=== PATIENT | male | born 1955 | race Caucasian/White ===

== ENCOUNTER 2020-10-20 17:10 | Emergency (ER) | payer OTHER ==
--- NOTE | 2020-10-20 18:13 | RAD REPORT ---
EXAM DESCRIPTION: CT - CTHCSPWOC - 10/20/2020 5:55 pm CLINICAL HISTORY: Trauma, head and neck injury. SMASH INJURY COMPARISON: No comparisons TECHNIQUE: Axial 5 mm thick images of the head were obtained. Axial 2 mm thick images of the cervical spine were obtained with sagittal and coronal reconstruction images generated and reviewed. All CT scans are performed using dose optimization technique as appropriate and may include automated exposure control or mA/KV adjustment according to patient size. FINDINGS: CT HEAD WITHOUT CONTRAST: A small acute subdural hematoma suspected along the left posterior falx measuring maximally 5-6 mm in thickness.No midline shift or hydrocephalus.Moderate-sized left posterior scalp hematoma noted. The paranasal sinuses and mastoids are clear.The calvarium is intact. CT CERVICAL SPINE WITHOUT CONTRAST: No fracture or subluxation.Moderate midcervical spondylosis is present.No prevertebral soft tissues s welling is identified. IMPRESSION: Small acute subdural hematoma suspected along the left posterior falx.No midline shift i s evident. No acute cervical spine abnormality detected.
[2020-10-20 19:31] LABS: Absolute Lymphocytes (CBC) 1.1 K/uL (0.7-4.9); Basophils % 2.3 % (0-1.3); Hematocrit 42.7 % (39.6-49.0); Lymphocytes % 10.5 % (15.3-44.8); MPV 8.6 fL (7.6-11.3); RBC Red Blood Cell Count 5.19 M/uL (4.33-5.43)
[2020-10-20 19:34] LABS: Protime INR 0.97
--- NOTE | 2020-10-20 19:35 | ER ---
Nurse's Notes [facility] Name: Daniel Al Age: 65 yrs Sex: Male : 1955 Arrival Date: 10/20/2020 Time: 17:47 Bed 17 Private MD: Diagnosis: Superficial injury of head;Posterior Scalp Laceration;Acute Left Posterior subdrual hematoma without midline shift;Altered mental status, unspecified Presentation: 10/20 17:47 Chief complaint: EMS states: FALL AND STRUCK HEAD ON ICE, +LOC FOR 2 MINUTE, NOW AOx1, bp BASELINE AOx4. Care prior to arrival: Glucose check: 126. Mechanism of Injury: Fall from standing position. Trauma event details: Injury occurred in the [facility], Injury occurred: at home. Injury occurred: October 20, 2020 Injury occurred at: 17:15. 17:47 Acuity: BOB 2 bp 17:47 Method Of Arrival: EMS: [facility] bp 20:17 Coronavirus screen: Client denies travel out of the [place] in the last 14 days. At this sf time, the client does not indicate any symptoms associated with coronavirus-19. Ebola Screen: Patient negative for fever greater than or equal to 101.5 degrees Fahrenheit, and additional compatible Ebola Virus Disease symptoms Patient denies exposure to infectious person. Patient denies travel to an Ebola-affected area in the 21 days before illness onset. No symptoms or risks identified at this time. Initial Sepsis Screen: Does the patient meet any 2 criteria? No. Patient's initial sepsis screen is negative. Does the patient have a suspected source of infection? No. Patient's initial sepsis screen is negative. Risk Assessment: Do you want to hurt yourself or someone else? Patient reports no desire to harm self or others. Onset of symptoms was October 20, 2020. Trauma Activation: Alert Physician: ED Physician; Name: ; Notified At: ; Arrived At: Physician: General Surgeon; Name: ; Notified At: ; Arrived At: Physician: Radiology; Name: ; Notified At: ; Arrived At: Physician: Respiratory; Name: ; Notified At: ; Arrived At: Physician: Lab; Name: ; Notified At: ; Arrived At: Historical: - Allergies: 20:14 PENICILLINS; sf - Home Meds: 20:14 Synthroid 50 mcg Oral tab 1 tab once daily [Active]; simvastatin 20 mg Oral tab 1 tab sf once daily [Active]; hydrochlorothiazide 12.5 mg Oral tab 1 tab once daily [Active]; carvedilol 25 mg oral tab 1 tab 2 times per day [Active]; metformin 500 mg Oral tab 1 tab 2 times per day [Active]; - PMHx: 20:14 Diabetes - NIDDM; Hyperlipidemia; Hypertension; Hypothyroidism; sf - PSHx: 20:14 Unable to obtain; sf - Immunization history:: Adult Immunizations unknown. - Immunization history: Last tetanus immunization: unknown. - Social history:: Smoking status: unknown Patient/guardian denies using alcohol, street drugs, IV drugs. Screenin:40 Fall Risk None identified. Fall in past 12 months (25 points). Secondary diagnosis (15 sf points) impaired mobility, IV access (20 points). Ambulatory Aid- None/Bed Rest/Nurse Assist (0 pts). Gait- Impaired (20 pts.). Mental Status- Overestimates/Forgets Limitations (15 pts.). Total Bernal Fall Scale indicates High Risk Score (45 or more points). Fall prevention measures have been instituted. Side Rails Up X 2 Placed Close to Nursing Station Frequent Obs/Assessments Occuring. 20:10 Abuse screen: Denies threats or abuse. Denies injuries from another. Nutritional sf screening: No deficits noted. Tuberculosis screening: No symptoms or risk factors identified. Never had TB. Possible symptoms: None Risk factors: None. Primary Survey: 20:15 NO uncontrolled hemorrhage observed. Breathing/Chest: Respiratory pattern: regular, sf Respiratory effort: spontaneous, unlabored. Circulation: Pulses: palpable right radial artery and left radial artery. Skin color: pink, Skin temperature: warm, dry. Disability Alert. Exposure/Environment: There is no evidence of uncontrolled external bleeding. Obvious injury(ies) are noted at this time: Posterior scalp. 20:18 Reassessment Airway Airway Patent Breathing/Chest Respiratory pattern Regular sf Respiratory effort Spontaneous Unlabored Circulation Color [place] Temperature Warm Dry Disability Alert. Assessment: 17:47 General: Appears distressed, uncomfortable, Behavior is cooperative, anxious, CONFUSED. bp Pain: Complains of pain in back of head. Neuro: Level of Consciousness is awake, obeys commands, confused, Oriented to person, place. EENT: No deficits noted. Cardiovascular: No deficits noted. Respiratory: No deficits noted. GI: No signs and/or symptoms were reported involving the gastrointestinal system. : No signs and/or symptoms were reported regarding the genitourinary system. Derm: No deficits noted. Musculoskeletal: No deficits noted. 19:38 General: Appears in no apparent distress. comfortable, Behavior is calm, cooperative. sf Pain: Complains of pain in left parietal area Pain currently is 5 out of 10 on a pain scale. Neuro: Level of Consciousness is awake, obeys commands, confused, Oriented to person, place, Moves all extremities. Full function Gait is unsteady, Speech is normal, Pupils are PERRLA. Cardiovascular: No deficits noted. Cardiovascular: No deficits noted. Patient's skin is warm and dry. Respiratory: No deficits noted. Airway is patent Respiratory effort is even, unlabored, Respiratory pattern is regular, symmetrical. Derm: Wound noted left parietal area Wound is laceration/abrasion, javi x5 in place. 20:14 Reassessment: Patient appears in no apparent distress at this time. No changes from sf previously documented assessment. Patient and/or family updated on plan of care and expected duration. Pain level reassessed. Patient repeating questions that have already been answered; having short term memory loss. 21:21 Reassessment: Patient called out to use a urinal again, explained this is the 3rd time sf in an hour. Patient did not remember using the urinal in the past. 21:45 Reassessment: No changes from previously documented assessment. Patient and/or family sf updated on plan of care and expected duration. Pain level reassessed. Patient ambulatory to restroom. Asked if he has urine frequency normally, patient states "this is the first time I've gone since I've been here." Reoriented patient. 22:32 Reassessment: Patient and/or family updated on plan of care and expected duration. Pain sf level reassessed. Patient ambulatory to restroom with assistance. Told to stay in the bed. Patient requesting to call his so he can go home. Reoriented to plan of care. Redressed wound on posterior scalp because it was loose. 23:38 Reassessment: Patient appears in no apparent distress at this time. No changes from sf previously documented assessment. Patient and/or family updated on plan of care and expected duration. Pain level reassessed. 10/21 00:14 Reassessment: Patient appears in no apparent distress at this time. No changes from previously documented assessment. Patient and/or family updated on plan of care and expected duration. Pain level reassessed. Vital Signs: 10/20 19:30 BP 142 / 55; Pulse 88; Resp 16; Pulse Ox 98% ; sf 20:00 BP 137 / 74; Pulse 87; Resp 16; Pulse Ox 98% ; sf 21:00 BP 136 / 55; Pulse 105; Resp 18; Pulse Ox 94% ; sf 22:18 BP 141 / 76; Pulse 105; Resp 18; Pulse Ox 96% ; sf 10/21 00:11 BP 137 / 69; Pulse 90; Resp 16; Pulse Ox 94% ; sf 00:25 Pain 6/10; sf 01:36 BP 125 / 72; Pulse 90; Resp 16; Temp 99.2; Pulse Ox 98% ; sf [place] Coma Score: 10/20 20:00 Eye Response: spontaneous(4). Verbal Response: confused(4). Motor Response: obeys sf commands(6). Total: 14. Trauma Score (Adult): 20:00 Eye Response: spontaneous(1); Verbal Response: confused(1); Motor Response: obeys sf commands(2); Systolic BP: > 89 mm Hg(4); Respiratory Rate: 10 to 29 per min(4); Kelli Score: 14; Trauma Score: 12 NIH Stroke Scale Scores: 19:40 NIHSS Score: 2 sf ED Course: 17:47 Patient arrived in ED. bp 17:47 Chon Asher MD is Attending Physician. tw4 17:49 Triage completed. bp 17:55 CT Head C Spine In Process Unspecified. EDMS 18:18 Tanvir Oconnor, RN is Primary Nurse. bp 19:07 Attending Physician role handed off by Chon Asher MD kdr 19:07 Gopi Coronel MD is Attending Physician. kdr 19:20 Inserted saline lock: 22 gauge in right hand, using aseptic technique. Blood collected. sf 19:[address] [facility] with Jeanmarie Molina. Call was transferred to Dr. stephanie Coronel for consultation regarding the transfer request. 19:29 Jeanmarie Molina gave admin approval. The pt is going to [facility]. The tt3 accepting physician is Dr. Roland. Nurse to call report to . Facesheet and MOT faxed to per Jeanmarie's request. 19:30 Dressings: Kerlix X 1; left parietal area and right parietal area 4X4s X 4; left sf parietal area and right parietal area. 19:37 Patient has correct armband on for positive identification. Placed in gown. Bed in low sf position. Call light in reach. Side rails up X2. Pulse ox on. NIBP on. Door closed. Noise minimized. Verbal reassurance given. 20:07 Report given to Rukhsana Bolden RN. sf 20:10 No provider procedures requiring assistance completed. Patient transferred, IV remains sf in place. 20:18 Patient maintains SpO2 saturation greater than 95% on room air. sf 20:18 Arm band placed on right wrist. sf 20:19 Thermoregulation: warm blanket given to patient. sf Administered Medications: 20:30 Drug: Keppra 1000 mg Route: IV; Rate: calculated rate; Site: right hand; sf 21:00 Follow up: IV Status: Completed infusion; IV Intake: 100ml sf 21:30 Follow up: Response: No adverse reaction sf 10/21 00:25 Drug: Tylenol 650 mg Route: PO; sf 01:42 Follow up: Response: No adverse reaction; Pain is decreased sf Intake: 10/20 21:00 IV: 100ml; Total: 100ml. sf Output: 20:00 Urine: 350ml (Voided); Total: 350ml. sf Outcome: 19:34 ER care complete, transfer ordered by . kdr 20:07 Transferred by ground EMS to [facility], Transfer form completed. X-rays sent sf w/ patient. 20:07 Condition: stable 23:12 Patient's length of stay in the Emergency Department was greater than 2 hours. Weather sf related transportation issuesPatient's length of stay extended due to 10/21 01:43 Transferred [facility]. sf 02:02 Patient left the ED. sf NIH Stroke Scale - NIH Stroke Score Date: 10/20/2020 Time: 19:40 Total Score = 2 1a. Level of Consciousness (LOC) - 0(Alert) 1b. Level of Consciousness (LOC) (Year \\T\\ Age) - 2(Neither) 1c. LOC Commands (Open \\T\\ Closes Eyes/Food Vendor) - 0(Both) 2. Best Gaze (Lateral Gaze Paresis) - 0(Normal) 3. Visual Field Loss - 0(No visual loss) 4. Facial Palsy - 0(Normal) 5a. Left Arm: Motor (10-second hold) - 0(No drift) 5b. Right Arm: Motor (10-second hold) - 0(No drift) 6a. Left Leg: Motor (5-second hold - always test supine) - 0(No drift) 6b. Right Leg: Motor (5-second hold - always test supine) - 0(No drift) 7. Limb Ataxia (finger/nose \\T\\ heel/ruano - test with eyes open) - 0(Absent) 8. Sensory Loss (pinprick arms/legs/face) - 0(Normal) 9. Best Language: Aphasia (description/naming/reading) - 0(No aphasia) 10. Dysarthria (speech clarity - read or repeat words) - 0(Normal) 11. Extinction and Inattention (visual/tactile/auditory/spatial/personal) - 0(No abnormality) Initials: sf Signatures: Dispatcher [employer] EDMS Gopi Coronel MD MD kdr Tanvir Oconnor RN RN bp Chon Asher MD MD tw4 Jovany Payton tt3 Nabil Zuniga RN RN sf
--- NOTE | 2020-10-20 19:35 | EDPHYS ---
Physician Documentation [facility] Name: Daniel Al Age: 65 yrs Sex: Male : 1955 Arrival Date: 10/20/2020 Time: 17:47 Bed 17 Private MD: ED Physician Gopi Coronel HPI: 10/20 18:09 This 65 yrs old Male presents to ER via EMS with complaints of Fall Injury. tw4 18:09 Details of fall: The patient fell from a height, from an upright position, while tw4 standing, while walking. Details of fall: The patient fell from an upright position. Onset: The symptoms/episode began/occurred today. Associated injuries: The patient sustained neck injury, contusion. Severity of symptoms: At their worst the symptoms were moderate, in the emergency department the symptoms are unchanged. The patient has not experienced similar symptoms in the past. Historical: - Allergies: 20:14 PENICILLINS; sf - Home Meds: 20:14 Synthroid 50 mcg Oral tab 1 tab once daily [Active]; simvastatin 20 mg Oral tab 1 tab sf once daily [Active]; hydrochlorothiazide 12.5 mg Oral tab 1 tab once daily [Active]; carvedilol 25 mg oral tab 1 tab 2 times per day [Active]; metformin 500 mg Oral tab 1 tab 2 times per day [Active]; - PMHx: 20:14 Diabetes - NIDDM; Hyperlipidemia; Hypertension; Hypothyroidism; sf - PSHx: 20:14 Unable to obtain; sf - Immunization history:: Adult Immunizations unknown. - Immunization history: Last tetanus immunization: unknown. - Social history:: Smoking status: unknown Patient/guardian denies using alcohol, street drugs, IV drugs. ROS: 18:09 Constitutional: Negative for fever, chills, and weight loss, Eyes: Negative for injury, tw4 pain, redness, and discharge, Cardiovascular: Negative for chest pain, palpitations, and edema, Respiratory: Negative for shortness of breath, cough, wheezing, and pleuritic chest pain, Abdomen/GI: Negative for abdominal pain, nausea, vomiting, diarrhea, and constipation, MS/Extremity: Negative for injury and deformity, Skin: Negative for injury, rash, and discoloration. Exam: 18:09 Constitutional: This is a well developed, well nourished patient who is awake, alert, tw4 and in no acute distress. 18:09 ENT: Nares patent. No nasal discharge, no septal abnormalities noted. Tympanic membranes are normal and external auditory canals are clear. Oropharynx with no redness, swelling, or masses, exudates, or evidence of obstruction, uvula midline. Mucous membranes moist. Neck: Trachea midline, no thyromegaly or masses palpated, and no cervical lymphadenopathy. Supple, full range of motion without nuchal rigidity, or vertebral point tenderness. No Meningismus. Chest/axilla: Normal chest wall appearance and motion. Nontender with no deformity. No lesions are appreciated. Cardiovascular: Regular rate and rhythm with a normal S1 and S2. No gallops, murmurs, or rubs. Normal PMI, no JVD. No pulse deficits. Respiratory: Lungs have equal breath sounds bilaterally, clear to auscultation and percussion. No rales, rhonchi or wheezes noted. No increased work of breathing, no retractions or nasal flaring. Abdomen/GI: Soft, non-tender, with normal bowel sounds. No distension or tympany. No guarding or rebound. No evidence of tenderness throughout. Back: No spinal tenderness. No costovertebral tenderness. Full range of motion. MS/ Extremity: Pulses equal, no cyanosis. Neurovascular intact. Full, normal range of motion. Neuro: Awake and alert, GCS 15, oriented to person, place, time, and situation. Cranial nerves II-XII grossly intact. Motor strength 5/5 in all extremities. Sensory grossly intact. Cerebellar exam normal. Normal gait. 18:09 Head/face: Noted is abrasion(s), contusion, hematoma, of the right side of the back of head, a laceration(s), that is linear, 8 cm(s). Vital Signs: 19:30 BP 142 / 55; Pulse 88; Resp 16; Pulse Ox 98% ; sf 20:00 BP 137 / 74; Pulse 87; Resp 16; Pulse Ox 98% ; sf 21:00 BP 136 / 55; Pulse 105; Resp 18; Pulse Ox 94% ; sf 22:18 BP 141 / 76; Pulse 105; Resp 18; Pulse Ox 96% ; sf 0216 00:11 BP 137 / 69; Pulse 90; Resp 16; Pulse Ox 94% ; sf 00:25 Pain 6/10; sf 01:36 BP 125 / 72; Pulse 90; Resp 16; Temp 99.2; Pulse Ox 98% ; sf NIH Stroke Scale Scores: 10/20 19:40 NIHSS Score: 2 sf Kelli Coma Score: 20:00 Eye Response: spontaneous(4). Verbal Response: confused(4). Motor Response: obeys sf commands(6). Total: 14. Trauma Score (Adult): 20:00 Eye Response: spontaneous(1); Verbal Response: confused(1); Motor Response: obeys sf commands(2); Systolic BP: > 89 mm Hg(4); Respiratory Rate: 10 to 29 per min(4); Kelli Score: 14; Trauma Score: 12 MDM: 17:47 Patient medically screened. tw4 18:09 Differential diagnosis: abrasion, closed head injury, contusion, laceration, sprain. tw4 Data reviewed: vital signs, nurses notes. Data interpreted: Pulse oximetry: Interpretation: normal. Counseling: I had a detailed discussion with the patient and/or guardian regarding: the historical points, exam findings, and any diagnostic results supporting the discharge/admit diagnosis. 19:29 Special discussion: Based on the patient's history, exam and DX evaluation, there is no kdr indication for emergent intervention or inpatient TX. It is understood by the patient/guardian that if the SXs persist or worsen they need to return immediately for re-evaluation. ED course: Dr. Eugenio dotsonpted for Dr. Rodríguez at [place]. 10/20 18:29 Order name: CBC with Diff tw 10/20 18:29 Order name: BMP; Complete Time: 20:03 [facility] 10/20 17:48 Order name: CT Head C Spine; Complete Time: 18:22 tw 10/20 18:29 Order name: PT-INR; Complete Time: 20:03 [facility] 10/20 18:29 Order name: Ptt, Activated; Complete Time: 20:03 [facility] 10/20 19:37 Order name: Manual Differential EDMS Administered Medications: 20:30 Drug: Keppra 1000 mg Route: IV; Rate: calculated rate; Site: right hand; sf 21:00 Follow up: IV Status: Completed infusion; IV Intake: 100ml sf 21:30 Follow up: Response: No adverse reaction 10/21 00:25 Drug: Tylenol 650 mg Route: PO; sf 01:42 Follow up: Response: No adverse reaction; Pain is decreased sf Disposition: 10/20/20 19:34 Transfer ordered to [facility]. Diagnosis are Superficial injury of head, Posterior Scalp Laceration, Acute Left Posterior subdrual hematoma without midline shift, Altered mental status, unspecified. - Reason for transfer: Higher level of care. - Accepting physician is Dr. Becker/Anne. - Condition is Fair. - Problem is new. - Symptoms have improved. NIH Stroke Scale - NIH Stroke Score Date: 10/20/2020 Time: 19:40 Total Score = 2 1a. Level of Consciousness (LOC) - 0(Alert) 1b. Level of Consciousness (LOC) (Year \T\ Age) - 2(Neither) 1c. LOC Commands (Open \T\ Closes Eyes/Loss Prevention Agent) - 0(Both) 2. Best Gaze (Lateral Gaze Paresis) - 0(Normal) 3. Visual Field Loss - 0(No visual loss) 4. Facial Palsy - 0(Normal) 5a. Left Arm: Motor (10-second hold) - 0(No drift) 5b. Right Arm: Motor (10-second hold) - 0(No drift) 6a. Left Leg: Motor (5-second hold - always test supine) - 0(No drift) 6b. Right Leg: Motor (5-second hold - always test supine) - 0(No drift) 7. Limb Ataxia (finger/nose \T\ heel/ruano - test with eyes open) - 0(Absent) 8. Sensory Loss (pinprick arms/legs/face) - 0(Normal) 9. Best Language: Aphasia (description/naming/reading) - 0(No aphasia) 10. Dysarthria (speech clarity - read or repeat words) - 0(Normal) 11. Extinction and Inattention (visual/tactile/auditory/spatial/personal) - 0(No abnormality) Initials: sf Signatures: Dispatcher [employer] Gopi Colon MD MD [facility] Chon Asher MD MD tw4 Nabil Zuniga RN RN sf Corrections: (The following items were deleted from the chart) 10/20 19:31 18:09 Special discussion: I discussed with the patient/guardian in detail that kdr at this point there is no indication for admission to the hospital. It is understood, however, that if the symptoms persist or worsen the patient needs to return immediately for re-evaluation. tw4 10/21 02:02 10/20 19:34 10/20/2020 19:34 Transfer ordered to [facility]. Diagnosis is Superficial injury of head; Posterior Scalp Laceration; Acute Left Posterior subdrual hematoma without midline shift; Altered mental status, unspecified. Reason for transfer: Higher level of care. Accepting physician is Dr. Becker/Anne. Condition is Fair. Problem is new. Symptoms have improved. kdr
[2020-10-20 19:39] LABS: Potassium 3.7 mmol/L (3.5-5.1)
[2020-10-20 20:28] LABS: Blood Morphology Comment NOT SEEN (NOT SEEN); Platelet Estimate ADEQ
[2020-10-20] MEDS ORDERED: LEVETIRACETAM 500 MG/5 ML VIAL IV ONE (20:40)
[2020-10-20] MEDS ORDERED: NA CHLORIDE 0.9% 100 ML ONE (20:40)
[2020-10-21] MEDS ORDERED: ACETAMINOPHEN 325 MG TABLET ONE (00:38)
[2020-10-21 02:14] VITALS: BP 125/72; TEMP 99.2; O2SAT 98
== END 2020-10-21 02:02 | disposition short-term general hospital (02) ==
LOC: ER 17:10
DX: S06.5X9A Traumatic subdural hemorrhage with loss of consciousness of unspecified duration, initial encounter (principal); R40.2362 Coma scale, best motor response, obeys commands, at arrival to emergency department; R40.2142 Coma scale, eyes open, spontaneous, at arrival to emergency department; R40.2242 Coma scale, best verbal response, confused conversation, at arrival to emergency department; S01.01XA Laceration without foreign body of scalp, initial encounter; E11.9 Type 2 diabetes mellitus without complications; E78.5 Hyperlipidemia, unspecified; E03.9 Hypothyroidism, unspecified; I10 Essential (primary) hypertension; Z79.84 Long term (current) use of oral hypoglycemic drugs
CPT/HCPCS: 96365; 85025; 80048; 36415; 85610; 85730; 70450; 72125; 99285; J1953; G0390

== ENCOUNTER 2024-01-09 08:15 | Day surgery (SDC) | payer OTHER ==
[2024-01-06 13:57] LABS: Anion Gap 6.9 mEq/L (5.0-15.0); Potassium 3.9 mEq/L (3.5-5.1)
[2024-01-06 13:58] LABS: Absolute Basophils 0.1 K/uL (0-0.5); Absolute Eosinophils 0.2 K/uL (0-0.5); Absolute Lymphocytes (CBC) 1.5 K/uL (0.7-4.9); Absolute Monocytes 0.4 K/uL (0.1-1.3); Absolute Neutrophil 5.8 K/uL (1.8-8.0); Basophils % 1.1 % (0-1.3); Hematocrit 41.5 % (39.6-49.0); Hemoglobin 13.8 g/dL (13.6-17.9); Lymphocytes % 19.1 % (15.3-44.8); MCH 27.5 pg (27.0-35.0); MCHC 33.3 g/dL (32.0-36.0); MCV 82.4 fL (80-100); MPV 8.3 fL (7.6-11.3); Monocytes % 5.6 % (3.3-12.3); Neutrophils % 72.2 % (41.7-73.7); Platelets 322 thou/uL (152-406); RBC Red Blood Cell Count 5.04 M/uL (4.33-5.43); Red Cell Distribution Width 14.1 % (12.1-15.2)
[2024-01-09] MEDS ORDERED: propofoL 200 MG/20 ML VIAL IV ONE (08:25)
[2024-01-09] MEDS ORDERED: LIDOCAINE 1% MPF 5 ML VIAL ONE (08:25)
[2024-01-09] MEDS ORDERED: ONDANSETRON 4 MG/2 ML VIAL ONE (08:25)
[2024-01-09] MEDS ORDERED: FENTANYL CITR 100 MCG/2 ML ONE (08:25)
[2024-01-09] MEDS ORDERED: ROCURONIUM 50 MG/5 ML VIAL IV ONE (08:25)
[2024-01-09] MEDS ORDERED: MIDAZOLAM HCL 2 MG/2 ML INJ ONE (08:25)
[2024-01-09] MEDS: NA CHLORIDE 0.9% 1,000 ML ONE (08:40)
[2024-01-09] MEDS: CEFAZOLIN SODIUM 1 GM/VIAL ONE (10:00)
[2024-01-09] MEDS ORDERED: GLYCOPYRROLATE 0.2 MG/ML SYR ONE ×2 (10:01→10:45)
[2024-01-09] MEDS ORDERED: EPHEDRINE SULF 50 MG/ML VIAL ONE (10:06)
[2024-01-09] MEDS ORDERED: KETOROLAC 30 MG/ML INJ ONE (10:43)
[2024-01-09] MEDS ORDERED: NEOSTIGMINE 1 MG/ML -10 ML VIAL ONE (10:45)
--- NOTE | 2024-01-09 11:18 | P.BOP ---
Preoperative diagnosis: tender umbilical and right inguinal hernia Postoperative diagnosis: same Primary procedure: 1. Laparoscopic repair of tender incarcerated right inguinal hernia Secondary procedure: 2. Open repair of incarcerated umbilical hernia Estimated blood loss: <10cc Specimen: umbilical sac and content Findings: as above. Anesthesia: General Complications: None Implants: 3D inguinal mesh Transferred to: Recovery Room Condition: Good
[2024-01-09] MEDS: FENTANYL CITR 100 MCG/2 ML ONE (11:26)
[2024-01-09] MEDS: ONDANSETRON 4 MG/2 ML VIAL ONE (11:28)
[2024-01-09 12:00] VITALS: O2SAT 97
[2024-01-09] MEDS: dexAMETHasone 4 MG/ML VIAL ONE (12:24)
[2024-01-09 13:07] VITALS: BP 140/61; TEMP 97.3
== END 2024-01-09 12:48 | disposition home or self-care (01) ==
LOC: OR 08:15
PROVIDERS: ATTEND Surgery
PROC: 0WQF0ZZ Repair Abdominal Wall, Open Approach (ICD-10-PCS; principal; 2024-01-09 10:00)
PROC: 0YU54JZ Supplement Right Inguinal Region with Synthetic Substitute, Percutaneous Endoscopic Approach (ICD-10-PCS; 2024-01-09 10:00)
DX: K42.0 Umbilical hernia with obstruction, without gangrene (principal); K40.90 Unilateral inguinal hernia, without obstruction or gangrene, not specified as recurrent
CPT/HCPCS: 85025; 80048; 36415; 82947 ×2; 88302; 49592; 49650; J2704; J1100; J2710; J2001; J2250; J3010 ×2; J2405 ×2; J7030; J0690

== ENCOUNTER 2024-08-06 08:16 | Day surgery (SDC) | payer OTHER ==
--- NOTE | 2024-08-01 13:54 | RAD REPORT ---
Procedure: Chest Pa And Lat (2 Views) HISTORY: Preop COMPARISON: September 2023 FINDINGS: The lungs appear clear of acute infiltrate. No significant pleural effusion noted. The heart is normal size. IMPRESSION: No acute abnormality is displayed.
[2024-08-01 14:32] LABS: Absolute Basophils 0.2 K/uL (0-0.5); Absolute Eosinophils 0.2 K/uL (0-0.5); Absolute Lymphocytes (CBC) 1.9 K/uL (0.7-4.9); Absolute Monocytes 0.4 K/uL (0.1-1.3); Absolute Neutrophil 4.8 K/uL (1.8-8.0); Basophils % 2.1 % (0-1.3); Eosinophils % 2.1 % (0-4.4); Hematocrit 40.5 % (39.6-49.0); Hemoglobin 13.4 g/dL (13.6-17.9); Lymphocytes % 25.6 % (15.3-44.8); MCH 27.8 pg (27.0-35.0); MCHC 33.1 g/dL (32.0-36.0); MPV 8.9 fL (7.6-11.3); Neutrophils % 64.2 % (41.7-73.7); Platelets 304 thou/uL (152-406); RBC Red Blood Cell Count 4.82 M/uL (4.33-5.43); Red Cell Distribution Width 14.4 % (12.1-15.2)
[2024-08-01 14:51] LABS: Anion Gap 8.9 mEq/L (5.0-15.0); Potassium 3.9 mEq/L (3.5-5.1)
[2024-08-06] MEDS ORDERED: NA CHLORIDE 0.9% 1,000 ML ONE (08:42)
[2024-08-06] MEDS ORDERED: ONDANSETRON 4 MG/2 ML VIAL ONE (09:01)
[2024-08-06] MEDS ORDERED: propofoL 200 MG/20 ML VIAL IV ONE (09:01)
[2024-08-06] MEDS ORDERED: LIDOCAINE 2% MPF 5 ML VIAL ONE (09:01)
[2024-08-06] MEDS ORDERED: FENTANYL CITR 100 MCG/2 ML ONE (09:01)
[2024-08-06] MEDS: CEFAZOLIN SODIUM 1 GM/VIAL ONE (09:43)
[2024-08-06] MEDS ORDERED: EPHEDRINE SULF 50 MG/ML VIAL ONE (10:07)
--- NOTE | 2024-08-06 10:23 | EKG ---
Test Date: 2024-08-01 Test Time: 14:55:58 Sales Designer: MEASUREMENT RESULTS: Intervals: Rate: 61 [place]: 144 QRSD: 132 QT: 448 QTc: 450 [place]: P: 55 [place]: 144 QRS: 100 T: 35 INTERPRETIVE STATEMENTS: Normal sinus rhythm Right bundle branch block Abnormal ECG No previous ECG available for comparison Electronically Signed On 08-06-24 10:22:11 [employer] by Americo Barron
--- NOTE | 2024-08-06 10:28 | P.BOP ---
Preoperative diagnosis: infected mass subQ mass Postoperative diagnosis: same Primary procedure: Excisional biopsy of infected mass subQ mass 5x5cm Estimated blood loss: <10cc Specimen: mass, culture Findings: mass Anesthesia: General Complications: None Transferred to: Recovery Room Condition: Good
[2024-08-06] MEDS: ONDANSETRON 4 MG/2 ML VIAL ONE (10:44)
[2024-08-06 11:02] VITALS: TEMP 97.2
[2024-08-06 13:17] VITALS: BP 142/90; O2SAT 99
--- NOTE | 2024-08-06 20:42 | OP ---
Date of Procedure: 08/06/2024 Surgeon: Gary Ferrari MD Diagnosis: Infected back subcutaneous mass. Procedure: Excisional biopsy of infected back subcutaneous mass, 5 x 5 cm. Estimated Blood Loss: Less than 10 cc. Specimens: Mass and culture. Anesthesia: General plus local. Indication: This is a case of a male who comes to us with infected back mass. He has been on antibi otics for a few days. The redness improved. The mass is still there. The benefits, alternatives, a nd risks of excisional biopsy of infected tender back mass was fully explained, which include, but no t limited to, infection, bleeding, damage to adjacent structures, anesthesia complication, nonhealing wound, [place], and even . He also understands this may not relieve the symptoms. He might need mo re than one surgical intervention. He understood and signed the consent. He also understands he marbella ht need wound care. He is trying to ask me to close if I can, even borderline infection and he will let me remove the stitches if by any chance we see no improvement in the next few days versus a wound packing, and we did advise him we will see how clinically he is and then proceed accordingly. He un derstood. Procedure In Detail: The area of concern was marked by me and the patient in the holding room. The patient was brought to the operating room, placed in supine position. Anesthesia was done without co mplication. The patient was placed in lateral decubitus position with proper protection. Back was p repped and draped in sterile fashion. Local anesthesia was applied followed by wedge incision on the skin. The mass was identified, carefully dissected free from the subcutaneous tissue. It goes deep , almost down to muscle, though it does not penetrate the muscle. The mass was excised in 1 unit. W e smeared the area and the subcutaneous tissue for culture, and then we proceeded to obtain profuse i rrigation and then hemostasis. After that, we proceeded to approximate the area with mattress suture s and #2 nylon multiple times. The patient tolerated the procedure well. The patient was sent to re covery in stable condition. JEFFERY/YARITZAL Voice ID: [id number] Report ID: [id number]
--- NOTE | 2024-08-06 20:47 | DS ---
Date of Discharge: 08/06/2024 Diagnosis: Infected back up worker subcutaneous mass. Procedure: Excisional biopsy of tender infected subcutaneous mass. Condition: Stable. Disposition: Home. Activity: As tolerated. No heavy lifting. Followup: Follow in my office in 1 week. Call for appointment [phone]. Keep area dry for 24 hours , then may shower. Apply triple antibiotics and a gauze on top. JEFFERY/ANNY Voice ID: [id number] Report ID: [id number]
== END 2024-08-06 12:00 | disposition home or self-care (01) ==
LOC: OR 08:16
PROVIDERS: ATTEND Surgery
PROC: 0JB70ZZ Excision of Back Subcutaneous Tissue and Fascia, Open Approach (ICD-10-PCS; principal; 2024-08-06 10:15)
DX: L72.0 Epidermal cyst (principal); L08.9 Local infection of the skin and subcutaneous tissue, unspecified; I10 Essential (primary) hypertension
CPT/HCPCS: 11406; 93005; 87070; 85025; 80048; 36415; 87205 ×2; 82947 ×2; 88304; 87075; 71046; J2704; J2003; J3010; J2405 ×2; J7030; J0690; 87077; 87186